=== PATIENT | female | born 1995 | race African-American/Black ===

== ENCOUNTER 2020-07-15 05:35 | Inpatient (IN) ==
[2020-07-15] MEDS ORDERED: ONDANSETRON 4 MG/2 ML VIAL IV PRN ×2 (05:46→08:20)
[2020-07-15] MEDS ORDERED: ceFAZolin 2,000 MG in PREMIX 1 EACH IV ONE (05:48)
[2020-07-15] MEDS ORDERED: FAMOTIDINE 20 MG/2 ML VIAL IV ONE (05:48)
[2020-07-15] MEDS ORDERED: CITRIC ACID/SODIUM CITRATE 30 ML UDCUP PO ONE (05:48)
[2020-07-15] MEDS ORDERED: LACTATED RINGERS 1,000 ML IV SCH ×2 (06:00)
[2020-07-15 06:46] LABS: Basophils % 0.2 % (0.0-0.8); Eosinophils % 0.1 % (0.00-10.9); Hematocrit 25.7 VOL% (35.7-47.0); Hemoglobin 7.9 GM/DL (12.0-16.0); Immature Granulocytes % 0.7 %; Immature Granulocytes Absolute 0.07 #; Lymphocytes # 2.6 10*3/uL (1.4-4.0); Lymphocytes % 26.9 % (21.3-54.2); Mean Corpuscular HGB Conc 30.7 GM/DL (32-36); Mean Corpuscular Volume 72.4 FL (87-102); Monocytes % 8.1 % (1.7-12.7); NRBC # 0.03 10*3/uL; Platelet Count 194 T/CUMM (130-400); Red Blood Count 3.55 MC/CUMM (3.8-5.5); Red Cell Distribution Width 18.9 % (9.3-17.3); White Blood Count 9.8 T/CUMM (4-12)
[2020-07-15] MEDS ORDERED: ONDANSETRON 4 MG/2 ML VIAL ONE (06:49)
[2020-07-15] MEDS ORDERED: BUPIVACAINE SPINAL 0.75% 2 ML AMP SPINAL ONE (06:49)
[2020-07-15] MEDS ORDERED: METOCLOPRAMIDE 10 MG/2 ML VIAL ONE (06:49)
[2020-07-15] MEDS ORDERED: MORPHINE 10 MG/10 ML VIAL ONE (06:50)
[2020-07-15] MEDS ORDERED: miSOPROStoL 200 MCG TABLET VAG ONE (07:00)
[2020-07-15 07:02] LABS: Hypochromasia 2+; Platelet Estimate Adequate
[2020-07-15] MEDS ORDERED: OXYTOCIN/LR 20 UNIT/1,000 ML BAG IV ONE ×3 (07:08→08:20)
[2020-07-15] MEDS ORDERED: CARBOPROST TROMETHAMINE 250 MCG/ML AMP IM ONE (07:08)
[2020-07-15] MEDS ORDERED: TRANEXAMIC ACID 1,000 MG/10 ML VIAL ONE (07:08)
[2020-07-15] MEDS ORDERED: METHYLERGONOVINE 0.2 MG/1 ML AMP ONE ×2 (07:08→15:24)
[2020-07-15] MEDS ORDERED: miSOPROStoL 200 MCG TABLET ONE (07:08)
[2020-07-15] MEDS ORDERED: SODIUM CHLORIDE 0.9% 0 ML IV ONE (07:09)
[2020-07-15] MEDS ORDERED: GLYCOPYRROLATE 0.4 MG/2 ML VIAL ONE (07:33)
[2020-07-15] MEDS ORDERED: MIDAZOLAM 2 MG/2 ML VIAL ONE (07:54)
[2020-07-15] MEDS ORDERED: KETOROLAC 30 MG/1 ML VIAL ONE (07:56)
[2020-07-15 08:04] LABS: Cord Arterial Blood HCO3 25.5 MMOL/L
[2020-07-15] MEDS ORDERED: PHENYLEPHRINE 1 MG/10 ML SYRINGE IV ONE (08:05)
[2020-07-15 08:07] LABS: Cord Venous Blood HCO3 22.4 MMOL/L; Cord Venous Blood PCO2 38.6 MMHG; Cord Venous Blood PO2 36.5 MMHG
[2020-07-15 08:11] LABS: Bilirubin,Urine Negative (Negative); Blood, Urine Negative (Negative); Glucose,Urine (UA) Negative (Negative); Ketones,Urine Negative (Negative); Mucus,Urine Occasional /LPF (Occasional); Nitrite,Urine Negative (Negative); Protein,Urine Negative; Squamous Epithelial Cell,Urine Occasional /HPF (0-10); Urine Appearance CLEAR (Clear); Urine Color Yellow (Yellow); Urine Specific Gravity 1.011 (1.001-1.035); Urine Urobilinogen < 2.0 EU/DL (0.2-1.0); WBC,Urine <1 /HPF (0-6)
[2020-07-15] MEDS ORDERED: MEASLES/MUMPS/RUBELLA VACCINE 0.5 ML VIAL SUBCUT ONE (08:20)
[2020-07-15] MEDS ORDERED: LANOLIN 50% CREAM 0.3 OZ TUBE TOP PRN (08:20)
[2020-07-15] MEDS ORDERED: ACETAMINOPHEN 325 MG TABLET PO PRN (08:20)
[2020-07-15] MEDS ORDERED: HYDROCORTISONE 2.5% RECTAL CREAM 30 GM TUBE TOP PRN (08:20)
[2020-07-15] MEDS ORDERED: RHO(D) IMMUNE GLOBULIN 300 MCG SYRINGE IM ONE (08:20)
[2020-07-15] MEDS ORDERED: DIPH/TET/ACEL PERT BOOSTER VACCINE 0.5 ML VIAL IM ONE (08:20)
[2020-07-15] MEDS ORDERED: BISACODYL 10 MG SUPP RECTAL PRN (08:20)
[2020-07-15] MEDS ORDERED: BENZOCAINE 20%/MENTHOL 0.5% SPRAY 56 GM CAN TOP PRN (08:20)
[2020-07-15] MEDS ORDERED: WITCH HAZEL PADS 100/JAR TOP PRN (08:20)
[2020-07-15] MEDS ORDERED: SODIUM CHLORIDE 0.9% 1,000 ML IV ONE (08:24)
[2020-07-15] MEDS ORDERED: BUPIVACAINE MPF 0.5% /EPI 30 ML VIAL ONE (08:44)
[2020-07-15] MEDS ORDERED: INFLUENZA VIRUS VACCINE 0.5 ML SYRINGE IM ONE (09:00)
[2020-07-15] MEDS ORDERED: diphenhydrAMINE 50 MG/1 ML VIAL IV PRN (12:08)
[2020-07-15] MEDS: hydrOXYzine HCL 25 MG TABLET PO PRN ×2 (13:41→20:28)
[2020-07-15] MEDS ORDERED: METHYLERGONOVINE 0.2 MG/1 ML AMP IM ONE (15:09)
[2020-07-15] MEDS: ceFAZolin 1,000 MG in SYRINGE 1 EACH IV SCH ×2 (15:22→23:26)
[2020-07-15] MEDS: DOCUSATE SODIUM 100 MG CAPSULE PO SCH ×2 (18:07→20:28)
[2020-07-15] MEDS: IBUPROFEN 800 MG TABLET PO PRN (22:45)
[2020-07-15] MEDS: oxyCODONE/ACETAMINOPHEN 5-325 MG TABLET PO PRN (22:52)
[2020-07-15] MEDS: SIMETHICONE CHEW 80 MG TABLET PO PRN (22:55)
[2020-07-15] MEDS ORDERED: METHYLERGONOVINE 0.2 MG TABLET PO SCH (23:30)
[2020-07-16] MEDS: METHYLERGONOVINE 0.2 MG/1 ML AMP IM SCH ×5 (00:03→23:30)
[2020-07-16 05:10] LABS: Basophils % 0.2 % (0.0-0.8); Eosinophils % 0.3 % (0.00-10.9); Hematocrit 20.3 VOL% (35.7-47.0); Immature Granulocytes % 0.7 %; Immature Granulocytes Absolute 0.08 #; Lymphocytes # 2.2 10*3/uL (1.4-4.0); Lymphocytes % 19.6 % (21.3-54.2); Mean Corpuscular HGB Conc 31.5 GM/DL (32-36); Mean Platelet Volume 11.6 FL (9.6-12.0); Monocytes % 9.4 % (1.7-12.7); Neutrophils % 69.8 % (38.7-73.9); Platelet Count 160 T/CUMM (130-400); Red Blood Count 2.82 MC/CUMM (3.8-5.5); Red Cell Distribution Width 18.8 % (9.3-17.3); White Blood Count 11.5 T/CUMM (4-12)
[2020-07-16 05:13] LABS: Hemoglobin 6.4 GM/DL (12.0-16.0)
[2020-07-16 05:33] LABS: Hypochromasia 1+
[2020-07-16 05:34] LABS: Microcytosis 2+; Platelet Estimate Adequate; Polychromasia Slight
[2020-07-16] MEDS: oxyCODONE/ACETAMINOPHEN 5-325 MG TABLET PO PRN ×2 (06:08→18:20)
[2020-07-16] MEDS: IBUPROFEN 800 MG TABLET PO PRN ×3 (07:39→21:20)
[2020-07-16] MEDS: FERROUS SULFATE 325 MG TABLET PO SCH ×2 (09:06→21:18)
[2020-07-16] MEDS: hydrOXYzine HCL 25 MG TABLET PO PRN (09:07)
[2020-07-16] MEDS: DOCUSATE SODIUM 100 MG CAPSULE PO SCH ×2 (16:51→21:18)
[2020-07-17] MEDS: oxyCODONE/ACETAMINOPHEN 5-325 MG TABLET PO PRN ×4 (00:02→20:40)
[2020-07-17] MEDS: FERROUS SULFATE 325 MG TABLET PO SCH ×2 (08:01→20:28)
[2020-07-17] MEDS: DOCUSATE SODIUM 100 MG CAPSULE PO SCH ×2 (08:01→20:28)
[2020-07-17] MEDS: IBUPROFEN 800 MG TABLET PO PRN ×2 (13:55→20:39)
[2020-07-17] MEDS: SIMETHICONE CHEW 80 MG TABLET PO PRN (13:55)
[2020-07-17] MEDS ORDERED: MAGNESIUM HYDROXIDE SUSP 30 ML UDCUP PO PRN (20:23)
[2020-07-17] MEDS: METHYLERGONOVINE 0.2 MG/1 ML AMP IM SCH (23:20)
[2020-07-18] MEDS: IBUPROFEN 800 MG TABLET PO PRN (04:09)
[2020-07-18] MEDS: oxyCODONE/ACETAMINOPHEN 5-325 MG TABLET PO PRN (05:59)
[2020-07-18 08:14] VITALS: BP 128/61
[2020-07-18] MEDS: FERROUS SULFATE 325 MG TABLET PO SCH (09:22)
[2020-07-18] MEDS: DOCUSATE SODIUM 100 MG CAPSULE PO SCH (09:22)
== END 2020-07-18 10:50 | disposition home or self-care (01) | DRG 788 ==
LOC: N.LD 05:35 → N.OB 11:57
PROVIDERS: ADMIT Specialist; ATTEND Specialist
PROC: LDCSECT (ICD-10-PCS; 2020-07-15 07:45)